=== PATIENT | female | born 1990 ===

== ENCOUNTER 2022-10-17 05:21 | Day surgery (SDC) | payer OTHER ==
[~2022-10-17 05:21] MED LIST: TRI-SPRINTEC T1 EACH PO
== END 2022-10-17 09:55 | disposition home or self-care (01) ==
LOC: CIR.AMB 05:21
PROVIDERS: ATTEND Orthopaedic Surgery Hand Surgery
DX: M65.231 Calcific tendinitis, right forearm (principal); E11.9 Type 2 diabetes mellitus without complications; E78.00 Pure hypercholesterolemia, unspecified; E78.3 Hyperchylomicronemia; D65 Disseminated intravascular coagulation [defibrination syndrome]; D66 Hereditary factor VIII deficiency; Z20.822 Contact with and (suspected) exposure to COVID-19; I10 Essential (primary) hypertension